=== PATIENT | female | born 1990 | race African-American/Black ===

== ENCOUNTER 2019-03-21 11:52 | Emergency (ER) | payer SELFPAY ==
[2019-03-21 11:52] VITALS: BP 114/75; PULSE 10; RESP 18; TEMP 36.6; O2SAT 99
--- NOTE | 2019-03-21 11:53 | DI.RAD.S_ITS ---
PROCEDURE: XR CHEST 1V INDICATIONS: right sided chest pain TECHNIQUE: One view of the chest was acquired. COMPARISON: None. FINDINGS: Surgical changes and devices: None. Lungs and pleura: There are low lung volumes, which may be related to shallow inspiration. Increased attenuation within the right lung base is present. There is no large effusion or definite pneumothorax. Mediastinum: Mediastinal contours appear normal. The heart is mildly prominent in size, which may be exaggerated by shallow inspiration. Bones and chest wall: No suspicious bony lesions. Overlying soft tissues appear unremarkable. A metallic density overlying the upper trachea probably is external to the patient. IMPRESSION: 1. Increased density within the right lung there are present atelectasis, aspiration, or pneumonia. Please correlate clinically. 2. Borderline enlargement of the heart. Dictated by: Lavell Marsh M.D. on 03/21/2019 at 11:09 Approved by: Lavell Marsh M.D. on 03/21/2019 at 11:11
[2019-03-21] MEDS: ALBUTEROL 2.5 MG/3 ML NEB (ADULT) INH (12:00)
[2019-03-21] MEDS: KETOROLAC 60 MG/2 ML VIAL 30 MG IV (12:00)
[2019-03-21 12:02] VITALS: PULSE 66; RESP 16; O2SAT 100
[2019-03-21 12:05] LABS: Add Manual Diff / Slide Review NO; Basophils Absolute Auto 0 /uL (0-100); Basophils Percent Auto 0.5 % (0-2); Eosinophils Absolute Auto 100 /uL (0-450); Hemoglobin 11.8 g/dL (12.0-16.0); Lymphocytes Absolute Auto 2200 /uL (1100-4500); Lymphocytes Percent Auto 36.5 % (25-40); Mean Corpuscular HGB Conc 32.8 % (30-36); Mean Corpuscular Hemoglobin 28.5 PG (26-34); Monocytes Absolute Auto 500 /uL (0-900); Monocytes Percent Auto 8.5 % (3-14); Neutrophils Absolute Auto 3100 /uL (1500-7000); Neutrophils Percent Auto 52.5 % (50-75); Platelet Count 237 X10^3/uL (150-400); Red Blood Cell Count 4.13 X10^6/uL (4.0-5.2)
[2019-03-21 12:15] VITALS: BP 121/69; PULSE 85; RESP 16; O2SAT 100
[2019-03-21 12:15] LABS: Alanine Aminotransferase 14 IU/L (9-52); Albumin 4.2 g/dL (3.5-5.0); Albumin Globulin Ratio 1.3 (1.0-2.8); Alkaline Phosphatase 58 U/L (38-126); Aspartate Aminotransferase 27 IU/L (14-36); Bilirubin Total 0.5 mg/dL (0.2-1.3); Blood Urea Nitrogen 6 mg/dL (7-17); Calcium 9.1 mg/dL (8.4-10.2); Carbon Dioxide 26 mmol/L (22-32); Chloride 104 mmol/L (98-107); Creatine Kinase 181 U/L (30-135); Estimated Glomerular Filt Rate > 60.0 mL/min (>60); Globulin 3.3 g/dL (1.7-4.1); Glucose 91 mg/dL (70-100); HEMOLYSIS 48 (0-50); Lipase 54 U/L (23-300); Sodium 140 mmol/L (137-145); Total Protein 7.5 g/dL (6.3-8.2)
[2019-03-21 12:17] LABS: D Dimer 240 ng/mL (<230)
[2019-03-21 12:20] LABS: B Type Natriuretic Peptide < 100 (<100)
--- NOTE | 2019-03-21 12:22 | ED_ITS ---
HPI - Chest Pain General Chief Complaint: Chest Pain Stated Complaint: Chest pain Time Seen by Provider: 03/21/19 11:52 Source: patient and EMS Mode of arrival: EMS Limitations: no limitations History of Present Illness HPI narrative: Patient is a 28-year-old female with history of asthma presenting with right-sided chest pain which started suddenly. 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 She was cutting chicken when it started suddenly on the right side. Nonradiating. Not reproducible with touch she does not feel short of breath. She has never had anything like this happen before. She says she has been a little motion sick being on a boat for the 1st time to she has taken some Dramamine. She denies any smoking. She says she has a cough but nonproductive she thought it was just from being in the kitchen. She received aspirin and fentanyl prior to arrival MD complaint: chest pain Duration: constant Pain location: right chest Pain radiation: none Relieving factors: nothing Exacerbating factors: nothing Context: recent travel Treatments prior to arrival chest pain: aspirin and other (Fentanyl) Related Data Previous Rx's Medication Instructions Recorded ondansetron 4 mg PO Q8H PRN #10 tab 03/21/19 Allergies Allergy/AdvReac Type Severity Reaction Status Date / Time No Known Drug Allergies Allergy Verified 03/21/19 11:58 Review of Systems Review of Systems Narrative: GENERAL: Denies chills, fatigue, malaise, fever, sweats, travel HEENT: Denies sinus pain, ear pain, sore throat, difficulty swallowing, neck pain RESPIRATORY: See HPI CARDIOVASCULAR: Denies chest pain, palpitations, orthopnea, edema GASTROINTESTINAL: Denies nausea, vomiting, abdominal pain, diarrhea, constipation, melena. : Denies dysuria, frequency, incontinence, hematuria, urinary retention, flank pain. MUSCULOSKELETAL: Denies weakness, joint pain, or bony pain SKIN: No rash, no erythema, no pruritus NEUROLOGIC: Denies weakness, dizziness, headache, numbness, change in speech, confusion PSYCHIATRIC: No concerning psychosocial issues. 12 point review of systems is negative except for those stated above and HPI [facility] Medical History Asthma (Acute) Social History Smoking Status: Never smoker Social History Smoking Status: Never smoker Exam Initial Vital Signs Initial Vital Signs: Vital Signs Temperature 97.9 F 03/21/19 11:52 Pulse Rate 10 L 03/21/19 11:52 Respiratory Rate 18 03/21/19 11:52 Blood Pressure 114/75 03/21/19 11:52 Pulse Oximetry 99 03/21/19 11:52 GENERAL: Tearful well-appearing young female and in [no acute] distress. HEENT: Head atraumatic,EOMI, pupils reactive, face symmetric, [moist] mucous m embranes CARDIOVASCULAR: Regular rate and rhythm without murmurs, rubs or gallops. RESPIRATORY: Breath sounds equal bilaterally, no wheezes rales or rhonchi. ABDOMEN: Soft, nontender. Normoactive bowel sounds all 4 quadrants. No guarding or rebound. EXTREMITIES: Normal range of motion, no clubbing or edema. Neurovascularly intact NEUROLOGICAL: Alert and oriented x4.Normal gait and speech. Cranial nerves II through XII grossly intact. SKIN: Warm, dry, no laceration, no petechiae, no rashes or lesions. Scores HEART Score Heart Score history: Slightly Suspicious Heart Score EKG: Normal Heart Score Age: < 45 years old Heart Score risk factors: No known risk factors Heart Score troponin: < or = to normal limit Heart Score Total: 0 PERC Score Age greater than or equal to 50 years: No Heart rate greater than or equal to 100 bpm: No Room Air O2 Sat less than 95%: No Unilateral leg swelling: No Recent trauma or surgery: No Hemoptysis: No Prior PE or DVT: No Hormone Use: No Total PERC Score: 0 Course Orders Ordered: ED Orders 03/21/19 11:50 B Type Natriuretic Peptide Stat Complete Blood Count AUTO DIFF Stat Comprehensive Metabolic Panel Stat D Dimer Stat Lipase Stat Troponin & CK Cardiac Panel Stat 03/21/19 11:52 EKG-12 Lead Stat 03/21/19 11:53 XR chest 1V Stat 03/21/19 12:31 CT angio chest PE protocol Stat 03/21/19 12:45 Urine Microscopic Stat 03/21/19 14:50 Troponin I Stat Discontinued Medications Albuterol (Ventolin) 2.5 mg INH NOW ONE Stop: 03/21/19 11:54 Last Admin: 03/21/19 12:00 Dose: 2.5 mg Documented by: MERLENE Ketorolac Tromethamine (Toradol) 30 mg IV NOW ONE Stop: 03/21/19 11:54 Last Admin: 03/21/19 12:00 Dose: 30 mg Documented by: MERLENE Ondansetron HCl (Zofran) 4 mg IV NOW ONE Stop: 03/21/19 13:48 Last Admin: 03/21/19 13:56 Dose: 4 mg Documented by: MERLENE Vital Signs Vital signs: Vital Signs - 8 hr 03/21/19 11:52 03/21/19 12:02 03/21/19 12:15 Temperature 97.9 F Pulse Rate 10 L 66 85 Respiratory Rate 18 16 16 Blood Pressure 114/75 Blood Pressure [Right Arm] 121/69 Pulse Oximetry 99 100 100 03/21/19 13:54 03/21/19 15:00 03/21/19 16:16 Temperature Pulse Rate 66 62 53 L Respiratory Rate 16 17 12 Blood Pressure 111/70 Blood Pressure [Right Arm] 118/72 99/49 L Pulse Oximetry 100 99 100 MDM - Chest Pain Lab Data Attestation: I reviewed the patient's lab results. Result diagrams: 03/21/19 11:50 03/21/19 11:50 Labs: Lab Results 03/21/19 03/21/19 03/21/19 Range/Units 11:50 11:50 11:50 WBC 6.0 (4.5-11.0) X10^3/uL RBC 4.13 (4.0-5.2) X10^6/uL Hgb 11.8 L (12.0-16.0) g/dL Hct 36.0 (36-46) % MCV 87.0 (80-100) fL MCH 28.5 (26-34) PG MCHC 32.8 (30-36) % RDW 14.0 (11.6-14.8) % Plt Count 237 (150-400) X10^3/uL Neut % (Auto) 52.5 (50-75) % Lymph % (Auto) 36.5 (25-40) % [place] % (Auto) 8.5 (3-14) % Eos % (Auto) 2.0 (2-4) % Baso % (Auto) 0.5 (0-2) % Neut # (Auto) 3100 (9994-1831) /uL Lymph # (Auto) 2200 (9424-3480) /uL [place] # (Auto) 500 (0-900) /uL Eos # (Auto) 100 (0-450) /uL Baso # (Auto) 0 (0-100) /uL D-Dimer 240 H (<230) ng/mL Sodium 140 (137-145) mmol/L Potassium 4.0 (3.4-5.1) mmol/L Chloride 104 (98-107) mmol/L Carbon Dioxide 26 (22-32) mmol/L BUN 6 L (7-17) mg/dL Creatinine 0.60 (0.52-1.04) mg/dL Estimated GFR > 60.0 (>60) mL/min BUN/Creatinine Ratio 10.0 (6-22) Glucose 91 (70-100) mg/dL Calcium 9.1 (8.4-10.2) mg/dL Total Bilirubin 0.5 (0.2-1.3) mg/dL AST 27 (14-36) IU/L ALT 14 (9-52) IU/L Alkaline Phosphatase 58 (38-126) U/L Total Creatine Kinase 181 H (30-135) U/L CK-MB (CK-2) 1.98 (<2.37) ng/mL CK-MB (CK-2) Rel Index 1.1 L (1.5-5.0) % Troponin I < 0.012 (0.01-0.034) ng/mL B-Natriuretic Peptide < 100 (<100) Total Protein 7.5 (6.3-8.2) g/dL Albumin 4.2 (3.5-5.0) g/dL Globulin 3.3 (1.7-4.1) g/dL Albumin/Globulin Ratio 1.3 (1.0-2.8) Lipase 54 (23-300) U/L Urine RBC (0-5/HPF) Urine WBC (0-5/HPF) Ur Squamous Epith Cells (0-5/HPF) Amorphous Sediment Urine Bacteria (None) Urine Mucus (Negative) Ur Culture Indicated? 03/21/19 03/21/19 Range/Units 12:45 14:50 WBC (4.5-11.0) X10^3/uL RBC (4.0-5.2) X10^6/uL Hgb (12.0-16.0) g/dL Hct (36-46) % MCV (80-100) fL MCH (26-34) PG MCHC (30-36) % RDW (11.6-14.8) % Plt Count (150-400) X10^3/uL Neut % (Auto) (50-75) % Lymph % (Auto) (25-40) % [place] % (Auto) (3-14) % Eos % (Auto) (2-4) % Baso % (Auto) (0-2) % Neut # (Auto) (6059-9881) /uL Lymph # (Auto) (4427-8144) /uL [place] # (Auto) (0-900) /uL Eos # (Auto) (0-450) /uL Baso # (Auto) (0-100) /uL D-Dimer (<230) ng/mL Sodium (137-145) mmol/L Potassium (3.4-5.1) mmol/L Chloride (98-107) mmol/L Carbon Dioxide (22-32) mmol/L BUN (7-17) mg/dL Creatinine (0.52-1.04) mg/dL Estimated GFR (>60) mL/min BUN/Creatinine Ratio (6-22) Glucose (70-100) mg/dL Calcium (8.4-10.2) mg/dL Total Bilirubin (0.2-1.3) mg/dL AST (14-36) IU/L ALT (9-52) IU/L Alkaline Phosphatase (38-126) U/L Total Creatine Kinase (30-135) U/L CK-MB (CK-2) (<2.37) ng/mL CK-MB (CK-2) Rel Index (1.5-5.0) % Troponin I < 0.012 (0.01-0.034) ng/mL B-Natriuretic Peptide (<100) Total Protein (6.3-8.2) g/dL Albumin (3.5-5.0) g/dL Globulin (1.7-4.1) g/dL Albumin/Globulin Ratio (1.0-2.8) Lipase (23-300) U/L Urine RBC None seen (0-5/HPF) Urine WBC 0-1/hpf (0-5/HPF) Ur Squamous Epith Cells >30 /hpf H (0-5/HPF) Amorphous Sediment 2+ Urine Bacteria Few (2-10) H (None) Urine Mucus 1+ H (Negative) Ur Culture Indicated? Cult not indicated Point of Care Testing Test Results Negative Urine Dip Bedside Urine Glucose Negative Bedside Urine Bilirubin - Negative Bedside Urine Ketone - Negative Urine Specific [place] 1.025 Bedside Urine Occult Blood - Negative Bedside Urine pH 6.0 Bedside Urine Protein +/- 15 Bedside Urine Urobilinogen +/- 1mg Bedside Urine Nitrite - Negative Bedside Urine Leukocytes - Negative Esterase Imaging Data Chest x-ray: Radiologist's impression: PROCEDURE: XR CHEST 1V INDICATIONS: right sided chest pain TECHNIQUE: One view of the chest was acquired. COMPARISON: None. FINDINGS: Surgical changes and devices: None. Lungs and pleura: There are low lung volumes, which may be related to shallow inspiration. Increased attenuation within the right lung base is present. There is no large effusion or definite pneumothorax. Mediastinum: Mediastinal contours appear normal. The heart is mildly prominent in size, which may be exaggerated by shallow inspiration. Bones and chest wall: No suspicious bony lesions. Overlying soft tissues appear unremarkable. A metallic density overlying the upper trachea probably is external to the patient. IMPRESSION: 1. Increased density within the right lung there are present atelectasis, asp iration, or pneumonia. Please correlate clinically. 2. Borderline enlargement of the heart. Dictated by: Lavell Marsh M.D. on 03/21/2019 at 11:09 CT scan - chest: Radiologist's impression: PROCEDURE: CT ANGIO CHEST PE PROTOCOL INDICATIONS: right sided pain and sob TECHNIQUE: After the administration of intravenous contrast, 2 mm thick sections acquired from the pulmonary apices to the posterior costophrenic angles. 3-dimensional maximum intensity projection (MIP) coronal and sagittal reformats were then acquired through the thorax. For radiation dose reduction, the following was used: automated exposure control, adjustment of mA and/or kV according to patient size. COMPARISON: None. FINDINGS: Image quality: Diagnostic. Pulmonary arteries: Pulmonary arteries are normal in size, and demonstrate no intraluminal filling defects to suggest central pulmonary embolism. Lungs and pleura: Mild groundglass attenuation is identified within the posterior bilateral lungs without a large area of consolidation. No pleural effusions or pneumothorax. Central and peripheral airways are patent. Mediastinum: Heart size is normal, without pericardial effusion. No mediastinal or hilar adenopathy. Thoracic aorta is normal in caliber and enhancement. Esophagus is normal in caliber, without hiatal hernia. Bones and chest wall: No suspicious bony lesions. Ribs and thoracic spine appear intact throughout. Thyroid gland is not enlarged were adequately evaluated on CT.. No axillary or supraclavicular adenopathy. Abdomen: Visualized upper abdominal solid organs appear normal in the early arterial phase of enhancement. IMPRESSION: 1. No evidence of pulmonary emboli. 2. No acute cardiopulmonary process is evident. 3. Mild bibasilar atelectasis. No definite pneumonia. Dictated by: Lavell Marsh M.D. on 03/21/2019 at 12:39 ECG Data Attestation: I personally reviewed and interpreted this ECG as follows: Prior ECG tracings: not available for review Interpretation: Normal sinus rhythm deep T-wave inversions noted in lead 3 and some in AVF no ST elevations. no ST depressions. MDM Narrative Medical decision making narrative: The patient is having considerable pain on the right side. She just flew from [employer] D-dimer is mildly elevated. Will get a CT to rule out PE. PE scan is negative. Awaiting 2nd troponin. 2nd troponin negative patient sleeping. With patient's permission I updated mother who the mother who lives across the country. Discharge Plan Departure Patient Disposition: Home Clinical Impression: Atypical chest pain Discharge Date/Time: 03/21/19 16:17 Instructions: DI for Atypical Chest Pain Activity Restrictions/Additional Instructions: *You have been diagnosed with atypical chest pain *What to do: Blood work EKGs a CT scan all today reassuring. If still having continued chest pain please see her primary care physician for any further workup that you may require *Continue to take medications as directed Zofran 4 mg every 8 hours if needed for nausea Motrin 800 mg every 8 hours if needed for pain Tylenol 1000 mg every 6 hours if needed for pain *Follow up with your primary care provider in 2-3 days *Return to ER if you should have increasing chest pain shortness of breath dizziness lightheadedness or any new, worsening or concerning symptoms Prescriptions: New ondansetron 4 mg tablet,disintegrating 4 mg PO Q8H PRN (Reason: nausea and vomiting) Qty: 10 RF: 0 Stand Alone Forms: Work Release Note
[2019-03-21 12:26] LABS: Troponin I < 0.012 ng/mL (0.01-0.034)
[2019-03-21 12:30] LABS: CKMB % Relative Index 1.1 % (1.5-5.0); Creatine Kinase MB 1.98 ng/mL (<2.37)
--- NOTE | 2019-03-21 12:31 | DI.CT.S_ITS ---
PROCEDURE: CT ANGIO CHEST PE PROTOCOL INDICATIONS: right sided pain and sob TECHNIQUE: After the administration of intravenous contrast, 2 mm thick sections acquired from the pulmonary apices to the posterior costophrenic angles. 3-dimensional maximum intensity projection (MIP) coronal and sagittal reformats were then acquired through the thorax. For radiation dose reduction, the following was used: automated exposure control, adjustment of mA and/or kV according to patient size. COMPARISON: None. FINDINGS: Image quality: Diagnostic. Pulmonary arteries: Pulmonary arteries are normal in size, and demonstrate no intraluminal filling defects to suggest central pulmonary embolism. Lungs and pleura: Mild groundglass attenuation is identified within the posterior bilateral lungs without a large area of consolidation. No pleural effusions or pneumothorax. Central and peripheral airways are patent. Mediastinum: Heart size is normal, without pericardial effusion. No mediastinal or hilar adenopathy. Thoracic aorta is normal in caliber and enhancement. Esophagus is normal in caliber, without hiatal hernia. Bones and chest wall: No suspicious bony lesions. Ribs and thoracic spine appear intact throughout. Thyroid gland is not enlarged were adequately evaluated on CT.. No axillary or supraclavicular adenopathy. Abdomen: Visualized upper abdominal solid organs appear normal in the early arterial phase of enhancement. IMPRESSION: 1. No evidence of pulmonary emboli. 2. No acute cardiopulmonary process is evident. 3. Mild bibasilar atelectasis. No definite pneumonia. Dictated by: Lavell Marsh M.D. on 03/21/2019 at 12:39 Approved by: Lavell Marsh M.D. on 03/21/2019 at 12:44
[2019-03-21 13:06] LABS: RBC Urine None Seen (0-5/HPF)
[2019-03-21 13:11] LABS: Amorphous Sediment Urine 2+; Bacteria Urine Few (2-10); Mucus Urine 1+ (Negative); Squamous Epithelial Cell Urine >30 /HPF (0-5/HPF); WBC Urine 0-1/HPF (0-5/HPF)
[2019-03-21 13:12] LABS: Culture Indicated Urine Cult Not Indicated
[2019-03-21 13:54] VITALS: BP 118/72; PULSE 66; RESP 16; O2SAT 100
[2019-03-21] MEDS: ONDANSETRON 4 MG/2 ML INJ IV (13:56)
--- NOTE | 2019-03-21 14:38 | PC.NURSE ---
I returned a call to patient's mother (Michelle at [phone]), per request, who asked that I convey to Dr Kelsey that patient has a history of migraines and could she be worked up for these, I informed the mother that if Maya was not having symptoms of a migraine at this time that it was unlikely we would need to do any workup that would be of any benefit, I assured her that I would pass the message on to Dr Kelsey. I informed Dr Kelsey of the request. No actions necessary at this time.
[2019-03-21 15:00] VITALS: BP 99/49; PULSE 62; RESP 17; O2SAT 99
[2019-03-21 15:21] LABS: Troponin I < 0.012 ng/mL (0.01-0.034)
[2019-03-21 16:16] VITALS: BP 111/70; PULSE 53; RESP 12; O2SAT 100
== END 2019-03-21 16:17 | disposition home or self-care (01) ==
PROVIDERS: Emergency Provider Emergency Medicine
DX: R07.89 Other chest pain (principal)
CPT/HCPCS: 36591; 71045; 71275; 80053; 81003; 81015; 81025; 82550; 82553; 83690; 83880; 84484; 85025; 85379; 93005; 94640; 96374; 96375; 99283; 99285; J1885; J2405; J7613